=== PATIENT | female | born 1975 | race Caucasian/White ===

== ENCOUNTER → 2017-03-27 | Outpatient (CLI) | payer OTHER ==
[~2017-03-27] MED LIST: IOHEXOL 240 MG/ML 50ML VIAL. ONE; IOHEXOL 300 MG/ML 75 ML VIAL. IV ONE
--- NOTE | 2017-03-27 15:08 | RAD ---
CT of the abdomen and pelvis with and without contrast, 03/27/2072: History: Epigastric pain, abnormal adrenal labs. Oral contrast material was administered for GI tract opacification. Prior to IV administration of contrast, multidetector CT imaging was obtained through the abdomen. Imaging was repeated through the abdomen and pelvis following an IV injection of iodinated contrast material. A lap band type device is in place. There is minimal dependent atelectasis posteriorly in the lung bases. There is no evidence of a hepatic mass or bile duct dilatation. A prominent Nanci's lobe is noted. The gallbladder is unremarkable. There is no evidence of a pancreatic mass. The spleen is of normal size. No renal abnormality is detected. The adrenal glands are of normal size. No adrenal mass is evident. The abdominal aorta is of normal caliber. No abdominal or pelvic adenopathy is detected. The uterus is surgically absent. There is a moderate amount of stool scattered throughout the colon. Small bowel loops are unremarkable. No free air or free fluid is evident in the abdomen or pelvis. IMPRESSION: 1. A lap band type device is in place. 2. No acute abdominal or pelvic abnormality is detected. 3. No adrenal abnormality is identified. PQRS Compliance Statement: One or more of the following individualized dose reduction techniques were utilized for this examination: 1. Automated exposure control 2. Adjustment of the mA and/or kV according to patient size 3. Use of iterative reconstruction technique
== END | disposition home or self-care (01) ==
LOC: CT 10:29
PROVIDERS: ATTEND Internal Medicine
DX: J98.11 Atelectasis (principal); G89.29 Other chronic pain; M54.5 Low back pain; R10.13 Epigastric pain; R11.2 Nausea with vomiting, unspecified; F17.200 Nicotine dependence, unspecified, uncomplicated; Z90.710 Acquired absence of both cervix and uterus
CPT/HCPCS: 74174; Q9966; Q9967